=== PATIENT | female | born 1975 | race Caucasian/White ===

== ENCOUNTER 2020-11-19 12:18 | Emergency (ER) | payer MEDICAID ==
[~2020-11-19] VITALS: Ht 157.5 cm; Wt 85.8 kg
[2020-11-19 13:01] LABS: HEMATOCRIT. 25.4 % (36.0-48.0); HEMOGLOBIN. 7.6 g/dL (12.0-16.0); MEAN CORPUSCULAR VOLUME 70.4 fL (81.0-99.0); MEAN PLATELET VOLUME 8.5 fl (7.4-10.4); PLATELET 425 x1000/uL (130-400); RED BLOOD CELL COUNT 3.61 mill/uL (4.2-5.4); RED CELL DISTRIBUTION WIDTH 23.5 % (11.6-14.6)
[2020-11-19 13:05] LABS: BASOPHILS % 1.4 % (0.0-2.0); EOSINOPHILS % 1.4 % (0.0-5.0); LYMPHOCYTES % 27.6 % (20.0-50.0); MONOCYTES % 6.2 % (2.0-8.0); NEUTROPHILS % 63.4 % (40.0-76.0)
[2020-11-19 13:08] LABS: CHLORIDE 109 mEq/L (98-107)
[2020-11-19 13:32] LABS: PLATELET ESTIMATE INCREASED
[2020-11-19] MEDS ORDERED: ACETAMINOPHEN 325MG TABLET PO ONE (13:45)
[2020-11-19 20:30] VITALS: BP 121/60
== END 2020-11-19 23:16 | disposition home or self-care (01) ==
LOC: ER 12:37
DX: D25.9 Leiomyoma of uterus, unspecified (principal); D64.9 Anemia, unspecified; Z90.49 Acquired absence of other specified parts of digestive tract
CPT/HCPCS: 36415; 80053; 85025; 86850; 86900; 86920; 93005; 99285; P9016

== ENCOUNTER 2024-03-09 18:26 | Emergency (ER) | payer MEDICAID ==
[~2024-03-09] VITALS: Ht 157.5 cm; Wt 86.0 kg
[2024-03-09 18:46] VITALS: TEMP 98.6; O2SAT 98
[2024-03-09 23:35] VITALS: BP 122/76; PULSE 59
[2024-03-09] MEDS: KETOROLAC 60MG/2ML VIAL IM ONE (23:35)
== END 2024-03-09 23:38 | disposition home or self-care (01) ==
LOC: EDBD 18:26 → ER 18:26
DX: R20.2 Paresthesia of skin (principal); R51.9 Headache, unspecified; H53.8 Other visual disturbances; D64.9 Anemia, unspecified; Z98.890 Other specified postprocedural states; Z90.49 Acquired absence of other specified parts of digestive tract
CPT/HCPCS: 99285; 70450; 81025; 96372; J1885

== ENCOUNTER 2024-12-01 12:40 | Emergency (ER) | payer MEDICAID ==
[~2024-12-01] VITALS: Ht 162.6 cm; Wt 91.0 kg
[2024-12-01 12:43] VITALS: O2SAT 100
[2024-12-01 13:40] LABS: CLARITY URINE CLOUDY (CLEAR); COLOR URINE ORANGE (YELLOW); GLUCOSE URINE NEGATIVE (NEGATIVE); KETONES URINE NEGATIVE (NEGATIVE); LEUKOCYTE ESTERASE URINE 1+ (NEGATIVE); NITRITE URINE NEGATIVE (NEGATIVE); OCCULT BLOOD URINE 3+ (NEGATIVE); PH URINE 6.5 (4.5-8.0); PROTEIN URINE TRACE (NEGATIVE); SPECIFIC GRAVITY URINE 1.011 (1.005-1.030); UROBILINOGEN URINE 0.2 E.U./dL (0.2-1.0)
[2024-12-01 13:54] LABS: BACTERIA URINE FEW; RBC URINE TNTC /hpf (0-2); SQUAMOUS EPITHELIAL CELL URINE RARE /lpf (RARE/1+); YEAST URINE NONE SEEN
[2024-12-01 13:58] LABS: HEMATOCRIT 33.7 % (36.0-48.0); HEMOGLOBIN 10.7 g/dL (12.0-16.0); MEAN CORPUSCULAR HGB CONC 31.7 g/dL (31.0-37.0); MEAN CORPUSCULAR VOLUME 75.7 fL (81.0-99.0); PLATELET 368 x1000/uL (130-400); RED BLOOD CELL COUNT 4.45 mill/uL (4.2-5.4); RED CELL DISTRIBUTION WIDTH 25.3 % (11.6-14.6); WHITE BLOOD COUNT 9.9 x1000/uL (4.5-11.0)
[2024-12-01 14:06] LABS: CHLORIDE 112 mEq/L (98-107); POTASSIUM 3.7 mEq/L (3.5-5.1); SODIUM 141 mEq/L (136-145)
[2024-12-01 14:07] LABS: CARBON DIOXIDE 20 mEq/L (21-32)
[2024-12-01 14:12] LABS: CREATININE 0.7 mg/dL (0.6-1.0); GLUCOSE 94 mg/dL (70-105); UREA NITROGEN BLOOD 9 mg/dL (9-23)
[2024-12-01 14:14] LABS: ALANINE AMINOTRANSFERASE 25 IU/L (10-49); ALBUMIN 4.2 g/dL (3.2-4.8); ASPARTATE AMINOTRANSFERASE 24 IU/L (<34); BILIRUBIN TOTAL 0.3 mg/dL (0.1-1.0); PROTEIN TOTAL 7.4 g/dL (6.0-8.3)
[2024-12-01 14:24] LABS: BILIRUBIN DIRECT < 0.1 mg/dL (<=3.0)
[2024-12-01 14:27] LABS: HCG SCREEN NEGATIVE
[2024-12-01 19:25] VITALS: BP 145/78; PULSE 80; RESP 18; TEMP 37.00296; O2SAT 100
== END 2024-12-01 19:27 | disposition home or self-care (01) ==
LOC: ER 12:40
DX: D25.9 Leiomyoma of uterus, unspecified (principal); D64.9 Anemia, unspecified; Z86.018 Personal history of other benign neoplasm; Z90.49 Acquired absence of other specified parts of digestive tract; Z98.890 Other specified postprocedural states
CPT/HCPCS: 36415; 76830; 76856; 80048; 80076; 81003; 81025; 84703; 85027; 99284